=== PATIENT | female | born 1980 | race Two or more races ===

== ENCOUNTER 2025-04-20 11:08 | Emergency (ER) | payer OTHER ==
[~2025-04-20] VITALS: Ht 157.5 cm; Wt 86.0 kg
[2025-04-20 11:11] VITALS: BP 117/63; PULSE 66; RESP 18; TEMP 97.9; O2SAT 99
[2025-04-20] MEDS ORDERED: IBUP-1493 PO (11:13)
[2025-04-20] MEDS: NEOMYCIN/POLYMYXIN B/HYDROCORT 10 ML OTIC SUSPENSION AS ONE (12:42)
== END 2025-04-20 13:44 | disposition home or self-care (01) ==
LOC: EMS 11:08
DX: H66.92 Otitis media, unspecified, left ear (principal); Z88.0 Allergy status to penicillin; Z88.2 Allergy status to sulfonamides
CPT/HCPCS: 99283